=== PATIENT | male | born 1980 | race American Indian/Alaskan Native ===

== ENCOUNTER 2018-02-11 10:08 | Emergency (ER) | payer SELFPAY ==
--- NOTE | 2018-02-11 11:26 | Emergency Department Report ---
ED Extremity Problem HPI - General Chief complaint: Extremity Injury, Lower Stated complaint: KNEE PAIN RIGHT Time Seen by Provider: 02/11/18 10:48 Source: patient Mode of arrival: Ambulatory Limitations: No Limitations - History of Present Illness Initial comments: Patient is a 37-year-old Male who states he hit his right knee approximately 2 weeks ago on some metal. Patient has had a lap of progressively worsened since that time. Patient states pain is 8 out of 10 in severity. Patient states hurts worse when he is bearing weight and is bending his leg. Patient complains of no other injury at this time. - Related Data Previous Rx's Medication Instructions Recorded Last Taken Type Ibuprofen [Motrin 800 MG tab] 800 mg PO TID PRN #30 tablet 12/31/14 Unknown Rx Penicillin Vk [Veetids TAB] 500 mg PO QID #40 tablet 12/31/14 Unknown Rx traMADol [Ultram 50 MG tab] 50 mg PO Q6HR PRN #14 tablet 12/31/14 Unknown Rx Ketorolac [Toradol] 10 mg PO Q6H PRN #14 tablet 02/11/18 Unknown Rx Allergies Allergy/AdvReac Type Severity Reaction Status Date / Time No Known Allergies Allergy Verified 02/11/18 10:15 ED Review of Systems ROS: Stated complaint: KNEE PAIN RIGHT Other details as noted in HPI Comment: All other systems reviewed and negative ED Past Medical Hx - Past Medical History Previous Medical History?: No - Surgical History Past Surgical History?: No - Social History Smoking Status: Never Smoker Substance Use Type: None - Medications Home Medications: Home Medications Medication Instructions Recorded Confirmed Last Taken Type Ibuprofen [Motrin 800 MG tab] 800 mg PO TID PRN #30 tablet 12/31/14 Unknown Rx Penicillin Vk [Veetids TAB] 500 mg PO QID #40 tablet 12/31/14 Unknown Rx traMADol [Ultram 50 MG tab] 50 mg PO Q6HR PRN #14 tablet 12/31/14 Unknown Rx Ketorolac [Toradol] 10 mg PO Q6H PRN #14 tablet 02/11/18 Unknown Rx ED Physical Exam - General Limitations: No Limitations General appearance: alert, in no apparent distress - Head Head exam: Present: atraumatic, normocephalic - Eye Eye exam: Present: normal appearance - ENT ENT exam: Present: mucous membranes moist - Neck Neck exam: Present: normal inspection - Respiratory Respiratory exam: Present: normal lung sounds bilaterally. Absent: respiratory distress - Cardiovascular Cardiovascular Exam: Present: regular rate, normal rhythm. Absent: systolic murmur, diastolic murmur, rubs, gallop - GI/Abdominal GI/Abdominal exam: Present: soft, normal bowel sounds - Rectal Rectal exam: Present: deferred - Extremities Exam Extremities exam: Present: normal inspection, full ROM, tenderness (lateral right knee), normal capillary refill. Absent: pedal edema, joint swelling - Back Exam Back exam: Present: normal inspection - Neurological Exam Neurological exam: Present: alert, oriented X3 - Psychiatric Psychiatric exam: Present: normal affect, normal mood - Skin Skin exam: Present: warm, dry, intact, normal color. Absent: rash ED Course Vital Signs 02/11/18 10:12 Temperature 98.4 F Pulse Rate 68 Respiratory 18 Rate Blood Pressure 112/74 O2 Sat by Pulse 100 Oximetry ED Medical Decision Making - Radiology Data X-ray right knee shows no acute process - Medical Decision Making Patient given instructional rice therapy and be discharged home Critical care attestation.: If time is entered above; I have spent that time in minutes in the direct care of this critically ill patient, excluding procedure time. ED Disposition Clinical Impression: Knee contusion Qualifiers: Encounter type: initial encounter Laterality: right Qualified Code(s): S80.01XA - Contusion of right knee, initial encounter Disposition: TO HOME OR SELFCARE Is pt being admited?: No Does the pt Need Aspirin: No Condition: Stable Instructions: Knee Pain (ED) Referrals: PRIMARY CARE, [Primary Care Provider] - 3-5 Days Time of Disposition: 11:26
[2018-02-11 11:32] VITALS: BP 116/74
--- NOTE | 2018-02-11 11:49 | XRay Report ---
RIGHT KNEE, 3 views: History: Injury, pain. The bony architecture is intact without evidence of fracture or dislocation. A small joint effusion is suspected on the lateral image. IMPRESSION: Small joint effusion. No acute osseous injury is identified.
== END 2018-02-11 11:31 | disposition home or self-care (01) ==
LOC: ED 10:08
DX: S80.01XA Contusion of right knee, initial encounter (principal); W22.8XXA Striking against or struck by other objects, initial encounter; Y93.89 Activity, other specified; Y92.89 Other specified places as the place of occurrence of the external cause; Y99.8 Other external cause status
CPT/HCPCS: 99283

== ENCOUNTER 2018-11-15 18:36 | Emergency (ER) | payer OTHER ==
[2018-11-15 20:46] VITALS: BP 101/64
--- NOTE | 2018-11-15 20:46 | Emergency Department Report ---
Chief Complaint: Fall Stated Complaint: ARM PAIN/FALL Time Seen by Provider: 11/15/18 20:45 - HPI History of Present Illness: fall 5 feet l elbow pain no deformity MSE screening note: Focused history and physical exam performed. Due to findings the following was ordered: ED Disposition for MSE Condition: Stable
[2018-11-15] MEDS ORDERED: IBUPROFEN PO ONE (20:47)
--- NOTE | 2018-11-15 22:02 | XRay Report ---
PROCEDURE: XR HUMERUS 2+V LT TECHNIQUE: Left humerus radiographs, AP and lateral views. HISTORY: pain sp fall COMPARISONS: None . FINDINGS: Fracture (s) and/or Dislocation(s): None . Joint space(s): Normal . Soft tissues: Normal . Bone mineralization: Normal . Foreign bodies: None . IMPRESSION: Normal Examination . This document is electronically signed by Erwin Lal MD., Nov 15 2018 10:00:04 PM ET
--- NOTE | 2018-11-15 22:03 | XRay Report ---
PROCEDURE: XR FOREARM LT TECHNIQUE: Left forearm radiographs, AP and lateral views. HISTORY: fall COMPARISONS: None . FINDINGS: Fracture (s) and/or Dislocation(s): None . Joint space(s): Normal . Soft tissues: Normal . Bone mineralization: Normal . Foreign bodies: None . IMPRESSION: Normal Examination . This document is electronically signed by Erwin Lal MD., Nov 15 2018 10:00:47 PM ET
[2018-11-15] MEDS ORDERED: IBUPROFEN ONE (23:05)
[2018-11-16] MEDS ORDERED: PERCOCET 5/325 PO STA (00:24)
--- NOTE | 2018-11-16 00:33 | Emergency Department Report ---
ED Fall HPI - General Chief Complaint: Fall Stated Complaint: ARM PAIN/FALL Time Seen by Provider: 11/15/18 20:45 Source: patient Mode of arrival: Ambulatory - History of Present Illness Initial Comments: 38-year-old -[place] Citizen male to emergency department complaining of pain to the left elbow after falling off his house. Loss his balance, falling onto the ground with his arm outstretched afterwards noticed pain and swelling to his elbow. Reports no numbness or tingling. Does have throbbing pain to the elbow, worse with palpation and range of motion. 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 Complaint: fall -: Sudden Fall Witnessed: yes, by family Place Fall Occurred: home Loss of Consciousness: none Prolonged Down Time?: no Symptoms Prior to Fall: none Location - Extremities: Left: Elbow Severity: moderate Quality: dull Associated Symptoms: denies: numbness, weakness, shortness of breath, abdominal pain, hematuria, unable to walk, lightheaded, vertigo, confusion - Related Data Previous Rx's Medication Instructions Recorded Last Taken Type Ibuprofen [Motrin 800 MG tab] 800 mg PO TID PRN #30 tablet 12/31/14 Unknown Rx Penicillin Vk [Veetids TAB] 500 mg PO QID #40 tablet 12/31/14 Unknown Rx traMADol [Ultram 50 MG tab] 50 mg PO Q6HR PRN #14 tablet 12/31/14 Unknown Rx Ketorolac [Toradol] 10 mg PO Q6H PRN #14 tablet 02/11/18 Unknown Rx Ketorolac [Toradol] 10 mg PO Q6H PRN #15 tablet 11/16/18 Unknown Rx Allergies Allergy/AdvReac Type Severity Reaction Status Date / Time No Known Allergies Allergy Verified 11/15/18 18:38 ED Review of Systems ROS: Stated complaint: ARM PAIN/FALL Other details as noted in HPI Constitutional: denies: chills, fever Eyes: denies: eye pain, eye discharge, vision change ENT: denies: ear pain, throat pain Respiratory: denies: cough, shortness of breath, wheezing Cardiovascular: denies: chest pain, palpitations Endocrine: no symptoms reported. denies: intolerance to cold, intolerance to heat Gastrointestinal: denies: abdominal pain, nausea, diarrhea Genitourinary: denies: urgency, dysuria Musculoskeletal: denies: back pain, joint swelling, arthralgia Skin: denies: rash, lesions Neurological: denies: headache, weakness, paresthesias Psychiatric: denies: anxiety, depression Hematological/Lymphatic: denies: easy bleeding, easy bruising ED Past Medical Hx - Past Medical History Previous Medical History?: No - Surgical History Past Surgical History?: No - Social History Smoking Status: Never Smoker Substance Use Type: None - Medications Home Medications: Home Medications Medication Instructions Recorded Confirmed Last Taken Type Ibuprofen [Motrin 800 MG tab] 800 mg PO TID PRN #30 tablet 12/31/14 Unknown Rx Penicillin Vk [Veetids TAB] 500 mg PO QID #40 tablet 12/31/14 Unknown Rx traMADol [Ultram 50 MG tab] 50 mg PO Q6HR PRN #14 tablet 12/31/14 Unknown Rx Ketorolac [Toradol] 10 mg PO Q6H PRN #14 tablet 02/11/18 Unknown Rx Ketorolac [Toradol] 10 mg PO Q6H PRN #15 tablet 11/16/18 Unknown Rx ED Physical Exam - General Limitations: No Limitations General appearance: alert, in no apparent distress - Head Head exam: Present: atraumatic, normocephalic - Eye Eye exam: Present: normal appearance, PERRL, EOMI - ENT ENT exam: Present: normal exam, normal orophraynx, mucous membranes moist - Neck Neck exam: Present: normal inspection - Respiratory Respiratory exam: Present: normal lung sounds bilaterally. Absent: respiratory distress - Cardiovascular Cardiovascular Exam: Present: regular rate, normal rhythm. Absent: systolic murmur, diastolic murmur, rubs, gallop - GI/Abdominal GI/Abdominal exam: Present: soft, normal bowel sounds - Rectal Rectal exam: Present: deferred - Extremities Exam Extremities exam: Present: normal inspection, tenderness, normal capillary refill, other (pain to the left elbow with palpation was tenderness and swelling along the medial epicondyle region. No swelling to the olecranon process. No salines or broken skin noted. There is full range of motion for supination and pronation with discomfort. Pulses 2+). Absent: pedal edema, calf tenderness - Back Exam Back exam: Present: normal inspection - Neurological Exam Neurological exam: Present: alert, oriented X3 - Psychiatric Psychiatric exam: Present: normal affect, normal mood - Skin Skin exam: Present: warm, dry, intact, normal color. Absent: rash ED Course Vital Signs 11/15/18 20:45 Temperature 97.4 F L Pulse Rate 70 Respiratory 18 Rate Blood Pressure 101/64 O2 Sat by Pulse 98 Oximetry ED Medical Decision Making - Radiology Data Radiology results: report reviewed (no fracture seen on x-ray.) - Medical Decision Making Fall from height, landing onto her left swelling to the left elbow. No obvious fracture on x-ray. Likely some damage to the tendon or edematous region of an elbow strain. Patient works with heavy equipment and adequate hydration. Advised patient out of work for about one week until cleared by his primary care provider for to return. He will be placed in a sling. Advised ice therapy, and intact. Laboratory daily range of motion exercises Critical care attestation.: If time is entered above; I have spent that time in minutes in the direct care of this critically ill patient, excluding procedure time. ED Disposition Clinical Impression: Swelling of left elbow, Strain of left elbow, Fall from height of greater than 3 feet Disposition: DC-01 TO HOME OR SELFCARE Is pt being admited?: No Does the pt Need Aspirin: No Condition: Stable Prescriptions: Ketorolac [Toradol] 10 mg PO Q6H PRN #15 tablet PRN Reason: Pain Referrals: [facility] MD KOURTNEY [Primary Care Provider] - 3-5 Days ELDER ROMERO MD [Staff Physician] - 3-5 Days Forms: Work/School Release Form(ED)
== END 2018-11-16 01:05 | disposition home or self-care (01) ==
LOC: ED 18:36
DX: S46.912A Strain of unspecified muscle, fascia and tendon at shoulder and upper arm level, left arm, initial encounter (principal); W17.89XA Other fall from one level to another, initial encounter; Y93.89 Activity, other specified; Y92.009 Unspecified place in unspecified non-institutional (private) residence as the place of occurrence of the external cause; Y99.8 Other external cause status